=== PATIENT | male | born 2005 | race Caucasian/White ===

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

== ENCOUNTER 2023-01-17 18:31 | Emergency (ER) | payer OTHER ==
[~2023-01-17 18:31] MED LIST: CEPH-588 PO; IBUP-1842 PO
--- NOTE | 2023-01-17 18:40 | NUR ---
CALLED IN LOBBY. NO ANSWER
--- NOTE | 2023-01-17 18:55 | NUR ---
PT CALLED BUT NO ANSWER
--- NOTE | 2023-01-17 19:10 | NUR ---
CALLED NO ANSWER
--- NOTE | 2023-01-17 19:30 | NUR ---
CALLED NO ANSWE
--- NOTE | 2023-01-17 20:00 | NUR ---
CALLED, NO ANSWER, LWBS
== END 2023-01-17 20:00 | disposition left against medical advice (07) ==
LOC: MED 18:31
DX: R22.0 Localized swelling, mass and lump, head (principal); Z53.21 Procedure and treatment not carried out due to patient leaving prior to being seen by health care provider